=== PATIENT | male | born 1940 | race Caucasian/White ===

== ENCOUNTER 2018-02-24 20:30 | Emergency (ER) | payer OTHER, SELFPAY ==
[2018-02-24 21:09] LABS: Absolute Monocytes 0.5 K/uL (0.1-1.3); Absolute Neutrophil 3.9 K/uL (1.8-8.0); Basophils % 0.9 % (0-1.3); Eosinophils % 0.7 % (0-4.4); Hematocrit 36.3 % (39.6-49.0); Lymphocytes % 30.6 % (15.3-44.8); MCH 33.7 pg (27.0-35.0); MCV 97.9 fL (80-100); MPV 7.8 fL (7.6-11.3); Monocytes % 7.3 % (3.3-12.3); RBC Red Blood Cell Count 3.71 M/uL (4.33-5.43)
[2018-02-24 21:24] LABS: Potassium 4.1 mmol/L (3.5-5.1)
[2018-02-24] MEDS ORDERED: NA CHLORIDE 0.9% 1,000 ML ONE (22:00)
[2018-02-24] MEDS ORDERED: FENTANYL CITR 100 MCG/2 ML ONE (22:01)
[2018-02-24] MEDS ORDERED: MIDAZOLAM HCL 2 MG/2 ML INJ ONE ×2 (22:01→22:20)
[2018-02-24] MEDS ORDERED: ONDANSETRON 4 MG/2 ML VIAL ONE (22:19)
--- NOTE | 2018-02-24 22:28 | EDPHYS ---
Physician Documentation [facility] Name: Rainer Richey Age: 77 yrs Sex: Male : 1940 Arrival Date: 02/24/2018 Time: 20:32 Bed 4 Private MD: ED Physician Sunil Palma HPI: 02/24 21:00 This 77 yrs old Male presents to ER via EMS with complaints of Hip Injury. jr8 21:00 The patient or guardian reports decreased range of motion, deformity, pain. that jr8 occurred at home, sustained from a fall, the left lower extremity is shortened, left leg is externally rotated, The patient is not able to ambulate. Patient is not able to bear weight. The complaints affect the left leg. Onset: The symptoms/episode began/occurred acutely, today. Modifying factors: The symptoms are alleviated by nothing, the symptoms are aggravated by any movement. Associated signs and symptoms: Loss of consciousness: the patient experienced no loss of consciousness, Pertinent positives: None. Severity of symptoms: At their worst the symptoms were moderate, in the emergency department the symptoms are unchanged. The patient has not experienced similar symptoms in the past. The patient has not recently seen a physician. Patient stated that he tripped while stepping off of object. Cause him to directly hit left hip. Immediate pain and deformity to left leg post incident. Denies any other trauma . Historical: - Allergies: 20:43 No Known Allergies; ak1 - Home Meds: 20:43 gabapentin oral oral [Active]; Avodart 0.5 mg oral cap [Active]; ak1 - PMHx: 20:43 neuropathy; ak1 - PSHx: 20:43 right knee sx; Hernia repair; hemorrhoidecotmy; ak1 - Immunization history: Last tetanus immunization: unknown. - Social history:: Smoking status: unknown. - Ebola Screening: : No symptoms or risks identified at this time. ROS: 21:00 Eyes: Negative for injury, pain, redness, and discharge, ENT: Negative for injury, jr8 pain, and discharge, Neck: Negative for injury, pain, and swelling, Cardiovascular: Negative for chest pain, palpitations, and edema, Respiratory: Negative for shortness of breath, cough, wheezing, and pleuritic chest pain, Abdomen/GI: Negative for abdominal pain, nausea, vomiting, diarrhea, and constipation, Back: Negative for injury and pain, Skin: Negative for injury, rash, and discoloration, Neuro: Negative for headache, weakness, numbness, tingling, and seizure. 21:00 MS/extremity: Positive for injury or acute deformity, decreased range of motion, pain, tenderness, of the left hip. Exam: 21:00 Head/Face: Normocephalic, atraumatic. Eyes: Pupils equal round and reactive to light, jr8 extra-ocular motions intact. Lids and lashes normal. Conjunctiva and sclera are non-icteric and not injected. Cornea within normal limits. Periorbital areas with no swelling, redness, or edema. ENT: Nares patent. No nasal discharge, no septal abnormalities noted. Tympanic membranes are normal and external auditory canals are clear. Oropharynx with no redness, swelling, or masses, exudates, or evidence of obstruction, uvula midline. Mucous membranes moist. Neck: Trachea midline, no thyromegaly or masses palpated, and no cervical lymphadenopathy. Supple, full range of motion without nuchal rigidity, or vertebral point tenderness. No Meningismus. Chest/axilla: Normal chest wall appearance and motion. Nontender with no deformity. No lesions are appreciated. Cardiovascular: Regular rate and rhythm with a normal S1 and S2. No gallops, murmurs, or rubs. Normal PMI, no JVD. No pulse deficits. Respiratory: Lungs have equal breath sounds bilaterally, clear to auscultation and percussion. No rales, rhonchi or wheezes noted. No increased work of breathing, no retractions or nasal flaring. Abdomen/GI: Soft, non-tender, with normal bowel sounds. No distension or tympany. No guarding or rebound. No evidence of tenderness throughout. Back: No spinal tenderness. No costovertebral tenderness. Full range of motion. Skin: Warm, dry with normal turgor. Normal color with no rashes, no lesions, and no evidence of cellulitis. Neuro: Awake and alert, GCS 15, oriented to person, place, time, and situation. Cranial nerves II-XII grossly intact. Motor strength 5/5 in all extremities. Sensory grossly intact. Cerebellar exam normal. Normal gait. 21:00 Musculoskeletal/extremity: Extremities: grossly normal except: noted in the left leg: decreased ROM, pain, tenderness, left leg externally rotated and shortened , Circulation is intact in all extremities. Pulses: noted to be 2+ in the right radial artery, right dorsalis pedis artery, left radial artery and left dorsalis pedis artery, Sensation intact. Vital Signs: 20:33 BP 175 / 85; Pulse 81; Resp 18; Temp 98.7(O); Pulse Ox 98% on R/A; Weight 81.65 kg (R); ak1 Height 6 ft. 0 in. (182.88 cm) (R); Pain 6/10; 21:36 BP 141 / 74; Pulse 95; Resp 18; Pulse Ox 99% on R/A; ak1 23:00 BP 101 / 64; Pulse 88; Resp 16; Pulse Ox 100% on Non-rebreather mask; ak1 20:33 Body Mass Index 24.41 (81.65 kg, 182.88 cm) ak1 Zan Coma Score: 20:33 Eye Response: spontaneous(4). Verbal Response: oriented(5). Motor Response: obeys ak1 commands(6). Total: 15. Trauma Score (Adult): 20:33 Eye Response: spontaneous(1); Verbal Response: oriented(1); Motor Response: obeys ak1 commands(2); Systolic BP: > 89 mm Hg(4); Respiratory Rate: 10 to 29 per min(4); Truro Score: 15; Trauma Score: 12 Procedures: 22:25 Splinting: Splint applied to left leg using claudette wrap, Orthoglass splint, applied by jr8 myself. tech. Examined by me, post splint application: neurovascular intact, 2+ distal pulses palpable, brisk capillary refill noted, Patient tolerated well. Moderate sedation: Pre-procedure assessment: the patient has been NPO 4 hour(s) prior to arrival, ASA physical classification: II - mild/mod systemic disease that does not interfere with daily routines, Airway assessment: able to hyperextend neck, able to maintain airway, can open mouth without difficulty, Mallampati classification of tongue size: II - faucial pillars and soft palate can be visualized, but uvula is masked by the base of the tongue, Monitoring during procedure: monitoring and evaluation advisor, continuous pulse oximetry, nurse at bedside at all times, Medications employed: Fentanyl, 75 mcg(s), Versed, 4 mg(s), Post-procedure assessment: the patient is moderately sedated, Rosales sedation score: 5 - sluggish response to a light glabellar tap, Respiratory status: even and unlabored, a reversal agent was not used. MDM: 20:41 Patient medically screened. cp 21:46 Data reviewed: vital signs, nurses notes, lab test result(s), radiologic studies, plain jr films. Data interpreted: Pulse oximetry: on room air is 99 %. Interpretation: normal. Counseling: I had a detailed discussion with the patient and/or guardian regarding: the historical points, exam findings, and any diagnostic results supporting the discharge/admit diagnosis, radiology results, the need for further work-up and treatment in the hospital. ED course: Patient requesting to go to [facility] as he lives close to there. Attempting to transfer there . 22:25 ED course: Dr. Figueroa orthopedics at [facility] excepted for ER to ER . [facility] 02/24 20:44 Order name: CBC with Diff; Complete Time: 21:19 8 02/24 20:44 Order name: Basic Metabolic Panel; Complete Time: 21:32 jr8 02/24 20:44 Order name: XRAY Femur LEFT; Complete Time: 22:39 jr8 02/24 21:47 Order name: Conscious Sedation; Complete Time: 22:25 jr8 02/24 21:48 Order name: Fonseca; Complete Time: 22:32 jr8 Administered Medications: 22:06 Drug: fentaNYL (PF) 75 mcg Route: IVP; Site: right forearm; ak1 22:29 Follow up: Response: No adverse reaction ak1 22:06 Drug: NS 0.9% 1000 ml Route: IV; Rate: 125 ml/hr; Site: right forearm; ak1 22:30 Follow up: IV Status: Infusion continued upon transfer ak1 22:08 Drug: Versed 2 mg Route: IVP; Site: right forearm; ak1 22:29 Follow up: Response: No adverse reaction ak1 22:08 Drug: Zofran 4 mg Route: IVP; Site: right forearm; ak1 22:29 Follow up: Response: No adverse reaction ak1 22:15 Drug: Versed 2 mg Route: IVP; Site: right forearm; ak1 22:30 Follow up: Response: No adverse reaction az1 02/25 00:05 Drug: morphine 4 mg Route: IVP; Site: right forearm; ak1 00:15 Follow up: Response: No adverse reaction ak1 Disposition: 04:32 Co-signature as Attending Physician, Sunil Palma MD. rn Disposition: 02/24/18 22:27 Transfer ordered to Other Acute Care Facility. Diagnosis is Spiral Fracture proximal femur . - Reason for transfer: Higher level of care. - Accepting physician is Dr. Figueroa. - Condition is Stable. - Problem is new. - Symptoms have improved. Signatures: Dispatcher [employer] EDMS Sunil Palma MD MD rn Roszak, Josh, PA PA jr8 Vianey Mcpherson RN RN ak1 Arley Gomez PA PA cp Corrections: (The following items were deleted from the chart) 00:04 02/24 22:27 02/24/2018 22:27 Transfer ordered to Other Acute Care Facility. Diagnosis ak1 is Spiral Fracture proximal femur . Reason for transfer: Higher level of care. Accepting physician is Dr. Figueroa. Condition is Stable. Problem is new. Symptoms have improved. jr8
--- NOTE | 2018-02-24 22:28 | ER ---
Nurse's Notes [facility] Name: Rainer Richey Age: 77 yrs Sex: Male : 1940 Arrival Date: 02/24/2018 Time: 20:32 Bed 4 Private MD: Diagnosis: Spiral Fracture proximal femur Presentation: 02/24 20:33 Presenting complaint: EMS states: pt fell from standing on to left hip. external ak1 rotation and shortening of left leg. pulses to left lower leg and foot intact and marked by EMS. pt had 50mcg fentanyl in route. pt A\T\OX4, no LOC, pt denies head injury. Care prior to arrival: None. Mechanism of Injury: Fall from standing position. Trauma event details: Injury occurred in the [facility], Injury occurred: at home. Injury occurred: February 24, 2018. 20:33 Acuity: KAITLIN 3 ak1 20:33 Method Of Arrival: EMS: [facility] ak1 20:45 Transition of care: patient was not received from another setting of care. Onset of ak1 symptoms was February 24, 2018. Risk Assessment: Do you want to hurt yourself or someone else? Patient reports no desire to harm self or others. Initial Sepsis Screen: Does the patient meet any 2 criteria? No. Patient's initial sepsis screen is negative. Does the patient have a suspected source of infection? No. Patient's initial sepsis screen is negative. Triage Assessment: 20:43 General: Appears in no apparent distress. Behavior is calm, cooperative. Pain: ak1 Complains of pain in left hip. Trauma Activation: Alert Physician: ED Physician; Name: Dr. Palma; Notified At: 20:29; Arrived At: 20:29 Physician: General Surgeon; Name: ; Notified At: 20:29; Arrived At: Physician: Radiology; Name: Ashwini; Notified At: 20:29; Arrived At: 20:30 Physician: Respiratory; Name: ; Notified At: 20:29; Arrived At: Physician: Lab; Name: ; Notified At: 20:29; Arrived At: Historical: - Allergies: 20:43 No Known Allergies; ak1 - Home Meds: 20:43 gabapentin oral oral [Active]; Avodart 0.5 mg oral cap [Active]; ak1 - PMHx: 20:43 neuropathy; ak1 - PSHx: 20:43 right knee sx; Hernia repair; hemorrhoidecotmy; ak1 - Immunization history: Last tetanus immunization: unknown. - Social history:: Smoking status: unknown. - Ebola Screening: : No symptoms or risks identified at this time. Screenin:33 Abuse screen: Denies threats or abuse. Denies injuries from another. Tuberculosis ak1 screening: No symptoms or risk factors identified. 20:46 Nutritional screening: No deficits noted. Fall Risk Fall in past 12 months (25 points). ak1 IV access (20 points). Primary Survey: 20:33 A: Airway: patent. Breathing/Chest: Respiratory pattern: regular, Respiratory effort: ak1 unlabored. Circulation: Pulses: palpable left popliteal artery, left posterior tibial artery and left dorsalis pedis artery. Disability Alert. 20:46 Reassessment Airway Airway Patent Breathing/Chest Respiratory pattern Regular ak1 Respiratory effort Spontaneous Unlabored. Secondary Survey: 20:33 HEENT: No deficits noted. Gastrointestinal: No deficits noted. : No signs and/or ak1 symptoms were reported regarding the genitourinary system. Musculoskeletal: Range of motion: limited in left hip. Assessment: 20:33 General: Appears in no apparent distress. Behavior is calm, cooperative. Pain: ak1 Complains of pain in left iliac crest and left hip. Neuro: Level of Consciousness is awake, alert, obeys commands, Oriented to person, place, time, situation, Administrative Executive are equal bilaterally Moves all extremities. Speech is normal. EENT: No deficits noted. Cardiovascular: No deficits noted. Respiratory: No deficits noted. GI: No signs and/or symptoms were reported involving the gastrointestinal system. : No signs and/or symptoms were reported regarding the genitourinary system. Derm: No signs and/or symptoms reported regarding the dermatologic system. Musculoskeletal: Capillary refill < 3 seconds, external rotation and shortening of left leg Reports pain in left iliac crest and left hip. 20:47 Reassessment: pt requesting to be transferred to [facility] due to previous ak1 sx done there. 21:32 Reassessment: Patient appears in no apparent distress at this time. No changes from ak1 previously documented assessment. Patient and/or family updated on plan of care and expected duration. Pain level reassessed. Patient is alert, oriented x 3, equal unlabored respirations, skin warm/dry/pink. 22:27 Reassessment: see conscious sedation flow sheet for vitals. ak1 Vital Signs: 20:33 BP 175 / 85; Pulse 81; Resp 18; Temp 98.7(O); Pulse Ox 98% on R/A; Weight 81.65 kg (R); ak1 Height 6 ft. 0 in. (182.88 cm) (R); Pain 6/10; 21:36 BP 141 / 74; Pulse 95; Resp 18; Pulse Ox 99% on R/A; ak1 23:00 BP 101 / 64; Pulse 88; Resp 16; Pulse Ox 100% on Non-rebreather mask; ak1 20:33 Body Mass Index 24.41 (81.65 kg, 182.88 cm) ak1 Zan Coma Score: 20:33 Eye Response: spontaneous(4). Verbal Response: oriented(5). Motor Response: obeys ak1 commands(6). Total: 15. Trauma Score (Adult): 20:33 Eye Response: spontaneous(1); Verbal Response: oriented(1); Motor Response: obeys ak1 commands(2); Systolic BP: > 89 mm Hg(4); Respiratory Rate: 10 to 29 per min(4); Zan Score: 15; Trauma Score: 12 ED Course: 20:32 Patient arrived in ED. ak1 20:33 Patient has correct armband on for positive identification. Bed in low position. Call ak1 light in reach. Side rails up X2. 20:33 Patient maintains SpO2 saturation greater than 95% on room air. ak1 20:36 Triage completed. ak1 20:40 Arley Gomez PA is PHCP. cp 20:40 Sunil Palma MD is Attending Physician. cp 20:43 Arm band placed on Patient placed in an exam room, on a stretcher, on supervisor residential, ak1 on pulse oximetry, Patient notified of wait time. 20:44 PHCP role handed off by Arley Gomez PA jr8 20:44 Isaac Stacy PA is PHCP. jr8 20:44 Vianey Mcpherson, RN is Primary Nurse. ak1 20:44 No provider procedures requiring assistance completed. Maintain EMS IV. Dressing ak1 intact. Good blood return noted. Site clean \T\ dry. Gauge \T\ site: 18g right forearm. 20:45 Thermoregulation: warm blanket given to patient. ak1 21:41 XRAY Femur LEFT In Process Unspecified. EDMS 22:01 Consent for conscious sedation explained by staff, signed by patient. ak1 22:27 Patient transferred, IV remains in place. ak1 22:28 Orthoglass splint: Posterior long leg splint applied on left leg. ak1 22:31 Fonseca cath inserted, using sterile technique, 16 Fr., by licensed surveyor, balloon inflated, to ak1 gravity drainage. Administered Medications: 22:06 Drug: fentaNYL (PF) 75 mcg Route: IVP; Site: right forearm; ak1 22:29 Follow up: Response: No adverse reaction ak1 22:06 Drug: NS 0.9% 1000 ml Route: IV; Rate: 125 ml/hr; Site: right forearm; ak1 22:30 Follow up: IV Status: Infusion continued upon transfer ak1 22:08 Drug: Versed 2 mg Route: IVP; Site: right forearm; ak1 22:29 Follow up: Response: No adverse reaction ak1 22:08 Drug: Zofran 4 mg Route: IVP; Site: right forearm; ak1 22:29 Follow up: Response: No adverse reaction ak1 22:15 Drug: Versed 2 mg Route: IVP; Site: right forearm; ak1 22:30 Follow up: Response: No adverse reaction ak1 02/25 00:05 Drug: morphine 4 mg Route: IVP; Site: right forearm; ak1 00:15 Follow up: Response: No adverse reaction ak1 Intake: 02/24 20:33 PO: 0ml; Total: 0ml. ak1 Outcome: 20:46 Condition: stable ak1 22:27 ER care complete, transfer ordered by . jr8 22:28 Instructed on the need for transfer. ak1 23:31 Transferred by ground EMS to [facility], Transfer form completed. X-rays ak1 sent w/ patient. Note: report given to Marquita at [phone] the nurse for room 631 23:32 waiting on transfer facility to give approval. Patient's length of stay extended due to ak1 02/25 00:04 Patient left the ED. ak1 Signatures: Dispatcher [employer] EDMS Isaac Stacy PA PA jr8 Vianey Mcpherson RN RN ak1 Arley Gomez PA PA cp
--- NOTE | 2018-02-24 22:37 | RAD REPORT ---
EXAM DESCRIPTION: RAD - Femur Left - 02/24/2018 9:41 pm CLINICAL HISTORY: Fall, leg pain COMPARISON: None. FINDINGS: Comminuted proximal femur fracture is present. There is a fracture plane through the inter trochanteric portion of the femur. Spiral fracture continues distally to the proximal shaft. There is superior migration and impaction at the intertrochanteric fracture site. No pathologic bone process. Femoral head is intact. No dislocation. Fracture appears to be limited to the intertrochanteric betty on and not involving the neck. Contusion and edema changes are present without large hematoma. No ai r or foreign body in the soft tissues. IMPRESSION: Comminuted intertrochanteric and proximal femoral shaft fracture as detailed.
[2018-02-25] MEDS ORDERED: MORPHINE 4 MG/ML SYR ONE (00:06)
== END 2018-02-25 00:04 ==
LOC: ER 20:30
PROC: 2W3MX1Z Immobilization of Left Lower Extremity using Splint (ICD-10-PCS; principal; 2018-02-25)
DX: S72.002A Fracture of unspecified part of neck of left femur, initial encounter for closed fracture (principal); W01.0XXA Fall on same level from slipping, tripping and stumbling without subsequent striking against object, initial encounter; Y93.01 Activity, walking, marching and hiking; Y92.009 Unspecified place in unspecified non-institutional (private) residence as the place of occurrence of the external cause
CPT/HCPCS: 29505; 36415; 51702; 73552; 80048; 85025; 96374; 96375; 99285; J2250; J2405; J3010; J7030